=== PATIENT | male | born 1995 ===

== ENCOUNTER 2020-08-27 10:30 | Inpatient (IN) ==
[2020-08-27] MEDS ORDERED: ACETAMINOPHEN 325 MG TABLET PO PRN (12:14)
[2020-08-27] MEDS ORDERED: ONDANSETRON 4 MG/2 ML VIAL IV PRN (12:14)
[2020-08-27] MEDS ORDERED: BISACODYL 5 MG TABLET PO PRN (12:14)
[2020-08-27] MEDS ORDERED: HYDROmorphone 2 MG/1 ML VIAL IV PRN (12:14)
[2020-08-27] MEDS ORDERED: ALBUTEROL/IPRATROPIUM 3 ML NEB RESP TX PRN (12:14)
[2020-08-27] MEDS ORDERED: KETOROLAC 15 MG/1 ML VIAL IV PRN (12:14)
[2020-08-27] MEDS: LACTATED RINGERS 1,000 ML IV SCH (14:59)
[2020-08-28] MEDS: LACTATED RINGERS 1,000 ML IV SCH ×4 (00:09→12:04)
[2020-08-28 06:15] LABS: Basophils # 0.1 10*3/uL (0.0-0.2); Basophils % 0.7 % (0.0-0.8); Eosinophils # 0.4 10*3/uL (0.0-0.87); Hematocrit 43.1 VOL% (42.0-52.0); Immature Granulocytes % 0.9 %; Immature Granulocytes Absolute 0.08 #; Lymphocytes # 2.2 10*3/uL (1.4-4.0); Lymphocytes % 24.9 % (21.2-54.2); Mean Corpuscular HGB Conc 32.5 GM/DL (32-36); Mean Corpuscular Volume 92.5 FL (87-102); Mean Platelet Volume 9.5 FL (9.6-12.0); Monocytes % 10.7 % (1.7-12.7); Neutrophils % 58.8 % (38.7-73.9); Platelet Count 201 T/CUMM (130-400); Red Blood Count 4.66 MC/CUMM (3.8-5.5); Red Cell Distribution Width 12.7 % (9.3-17.3); White Blood Count 8.7 T/CUMM (4-12)
[2020-08-28 06:38] LABS: Albumin 3.1 G/DL (3.4-5.0); Bilirubin,Total 1.1 MG/DL (0.2-1.0); Calcium 8.5 MG/DL (8.5-10.1); Osmolality,Calculated 276.4 MOS/KG (273-304); Potassium 3.8 MMOL/L (3.5-5.1)
[2020-08-28] MEDS ORDERED: LIDOCAINE 2% 5 ML VIAL ONE (07:11)
[2020-08-28] MEDS ORDERED: fentaNYL 100 MCG/2 ML VIAL ONE ×2 (07:11→07:55)
[2020-08-28] MEDS ORDERED: propofoL 200 MG/20 ML VIAL IV ONE (07:11)
[2020-08-28] MEDS ORDERED: MIDAZOLAM 2 MG/2 ML VIAL ONE (07:11)
[2020-08-28] MEDS ORDERED: ROCURONIUM 50 MG/5 ML VIAL IV ONE (07:11)
[2020-08-28] MEDS ORDERED: SEVOFLURANE 1 UNIT/15 MINUTE INH ONE ×4 (07:15→09:00)
[2020-08-28] MEDS ORDERED: TISSUE ADHESIVE 1 EACH APPLICATOR TOP ONE (07:21)
[2020-08-28] MEDS ORDERED: LIDOCAINE 1%/EPI INJ 20 ML VIAL ONE (07:21)
[2020-08-28] MEDS ORDERED: BUPIVACAINE MPF 0.25% 30 ML VIAL ONE (07:21)
[2020-08-28] MEDS ORDERED: FAMOTIDINE 20 MG/2 ML VIAL IV ONE (07:28)
[2020-08-28] MEDS ORDERED: ONDANSETRON 4 MG/2 ML VIAL ONE (07:42)
[2020-08-28] MEDS ORDERED: DEXAMETHASONE 4 MG/1 ML VIAL ONE (07:42)
[2020-08-28] MEDS ORDERED: KETOROLAC 30 MG/1 ML VIAL ONE (07:42)
[2020-08-28] MEDS ORDERED: GLYCOPYRROLATE 0.4 MG/2 ML VIAL ONE ×2 (08:15→09:00)
[2020-08-28] MEDS ORDERED: NEOSTIGMINE 10 MG/10 ML VIAL ONE (08:15)
[2020-08-28] MEDS ORDERED: ALBUTEROL INHALER 18 GM INH ONE (08:46)
[2020-08-28] MEDS ORDERED: PANTOPRAZOLE 40 MG TABLET PO SCH (09:00)
[2020-08-28 11:50] VITALS: BP 124/69
== END 2020-08-28 14:49 | disposition home or self-care (01) | DRG 419 ==
LOC: N.4E → OBSVTOIN 14:24
PROVIDERS: ADMIT Surgery; ATTEND Surgery
PROC: LAPCHOL (2020-08-28 07:29)